=== PATIENT | female | born 1985 | race Caucasian/White ===

== ENCOUNTER 2024-12-31 10:17 | Outpatient (CLI) | payer OTHER, SELFPAY ==
[2025-01-01 21:48] LABS: HPV Source Cervix
[2025-01-08 15:05] LABS: Pap Test Digital Imaging Done
== END 2024-12-31 10:18 | disposition home or self-care (01) ==
PROVIDERS: PCP Family Medicine; Visit Provider Family Medicine
DX: Z00.00 Encounter for general adult medical examination without abnormal findings (principal); Z13.228 Encounter for screening for other metabolic disorders; Z13.6 Encounter for screening for cardiovascular disorders; Z13.0 Encounter for screening for diseases of the blood and blood-forming organs and certain disorders involving the immune mechanism; Z12.4 Encounter for screening for malignant neoplasm of cervix; Z11.51 Encounter for screening for human papillomavirus (HPV)
CPT/HCPCS: 80048; 80061; 85025; 87624; 87625; 88141; 88142; 88175